=== PATIENT | male | born 1995 ===

== ENCOUNTER 2023-07-31 22:01 | Emergency (ER) | payer SELFPAY ==
[~2023-07-31] VITALS: Ht 185.4 cm; Wt 90.7 kg
[2023-07-31] MEDS ORDERED: Cephalexin Monohydrate 500 MG Cap PO ONE (22:40)
[2023-07-31] MEDS ORDERED: Trimethoprim/Sulfamethoxazole DS Tab PO ONE (22:40)
[2023-07-31] MEDS ORDERED: SULTRIDS PO (22:45)
[2023-07-31] MEDS ORDERED: Keflex500 MG PO (22:45)
== END 2023-07-31 23:00 | disposition home or self-care (01) ==
LOC: ER 22:01
DX: L03.313 Cellulitis of chest wall (principal); Z79.899 Other long term (current) drug therapy
CPT/HCPCS: 99283; A9270